=== PATIENT | male | born 1940 | race Caucasian/White ===

== ENCOUNTER → 2017-06-12 | Day surgery (SDC) | payer MEDICARE ==
[2017-06-12 13:29] LABS: INR 1.1 (<1.2); Partial Thromboplastin Time 24.1 sec (22.0-30.0); Prothrombin Time 11.3 sec (9.0-12.0)
[2017-06-12 13:46] VITALS: RESP 16; BMI 29.9
--- NOTE | 2017-06-12 15:21 | USB ---
EXAMINATION TYPE: US biopsy breast VAD LT, US biopsy breast add'l VAD LT, US biopsy breast add'l VAD RT DATE OF EXAM: 06/12/2017 CLINICAL HISTORY: R92.8 Abnormal Mammogram. Abnormal ultrasound TECHNIQUE: Ultrasound guided core biopsy of left breast 2 sites and right breast one site. COMPARISON: Prior bilateral breast ultrasound and mammogram April 23, 2017 FINDINGS: The procedure of ultrasound guided core biopsy was explained to the patient. Benefits, alternatives, and risks were discussed. An informed consent was then obtained. The patient was placed in supine positioning for imaging and for the procedure. The overlying skin was prepped and draped in usual sterile fashion. Lidocaine was used as anesthetic. Lidocaine with epinephrine is used as anesthetic into deeper tissue bilaterally. A hugo was made with surgical scalpel. Under ultrasound guidance, a 12-gauge vacuum assisted biopsy gun device was used to obtain 2 core samples of palpable abnormality left breast and tissue subareolar region left breast. Under ultrasound guidance, a 12-gauge vacuum assisted biopsy gun device was used to obtain 3 core samples of tissue subareolar region right breast. Biopsy clip was not deployed as areas of concern are well visualized and is male patient. The patient tolerated the procedure well without any immediate complication. The patient was kept in the radiology department for short stay after the procedure and then discharged home in stable condition. IMPRESSION: Successful, uncomplicated ultrasound guided core biopsy of 3 areas of concern in the bilateral breasts as requested by surgeon, full pathology results to follow. Low index of suspicion. Subareolar regions favor gynecomastia. Palpable abnormality left breast favors benign lipoma. Pathology Results: Benign A. BREAST, LEFT THREE O'CLOCK, CORE BIOPSY: BENIGN FIBROADIPOSE TISSUE WITH FEATURES SUGGESTIVE OF A LIPOMA. BREAST TISSUE NOT IDENTIFIED. B. BREAST, LEFT POSTERIOR NIPPLE, CORE BIOPSY: GYNECOMASTIA. C. BREAST, RIGHT POSTERIOR NIPPLE, CORE BIOPSY: GYNECOMASTIA. Recommendation Surgical consult of both breasts. Excision can be considered of the patient's left breast lipoma and of the bilateral gynecomastia if symptomatic. MTDD
[2017-06-12 15:58] VITALS: BP 138/77; PULSE 56; TEMP 97.9
== END ==
LOC: RADUSWWP 12:42
PROVIDERS: ATTEND Surgery
DX: N62 Hypertrophy of breast (principal); R92.8 Other abnormal and inconclusive findings on diagnostic imaging of breast; N64.89 Other specified disorders of breast; Z88.8 Allergy status to other drugs, medicaments and biological substances
CPT/HCPCS: 88305; 85610; 85730; 19083; 19084 ×2; J2001

== ENCOUNTER → 2018-03-28 | Outpatient (CLI) | payer MEDICARE ==
--- NOTE | 2018-03-28 12:41 | US ---
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 CKD EXAM MEASUREMENTS: Right Kidney: 10.7 x 5.4 x 5.5 cm Left Kidney: 10.3 x 5.7 x 4.0 cm Right Kidney: Exophytic cyst mid/medial= 1.1 x 1.0 x 1.2 cm Left Kidney: Cyst upper pole= 2.0 x 1.5 x 2.4 cm, cyst medial= 3.5 x 2.0 x 3.3 cm Bladder: wnl Bilateral Jets seen: Yes There is no evidence for hydronephrosis at this point in time. No nephrolithiasis is seen. No solid masses are identified. The urinary bladder is anechoic. Bilateral ureteral jets are seen. IMPRESSION: Simple renal cysts as noted.
== END | disposition home or self-care (01) ==
LOC: RADUSWWP 12:16
PROVIDERS: ATTEND Internal Medicine
DX: N18.3 Chronic kidney disease, stage 3 (moderate) (principal); N28.1 Cyst of kidney, acquired
CPT/HCPCS: 76770

== ENCOUNTER → 2022-03-28 | Outpatient (CLI) | payer MEDICARE ==
--- NOTE | 2022-03-28 13:51 | MM ---
Reason for Exam: Clinical finding. Last mammogram was performed 4 year(s) and 11 month(s) ago. Indicated Problems: Lump or thickening of the right side for 2 Month(s). Patient History: 06/12/2017, Benign Core Biopsy on the left side. 06/12/2017, Benign Core Biopsy on the left side. 06/12/2017, Benign Core Biopsy on the right side. Prior Study Comparison: 04/23/2017 Bilateral Diagnostic Mammogram, [facility]. Tissue Density: The breast tissue is heterogeneously dense. This may lower the sensitivity of mammography. Findings: Analyzed By CAD. Bilateral flame-shaped gynecomastia. No suspicious masses or microcalcifications. Focal abnormality corresponding to patient's palpable marker of the right breast. Overall Assessment: Incomplete: need additional imaging evaluation, BI-RAD 0 Management: Diagnostic Breast Ultrasound of the right breast. A clinical breast exam by your physician is recommended on an annual basis and results should be correlated with mammographic findings. This exam should not preclude additional follow-up of suspicious palpable abnormalities. Results were given to the patient verbally at the time of exam. Electronically signed and approved by: Isaias Ellison D.O.
--- NOTE | 2022-03-28 13:51 | USB ---
Reason for Exam: Clinical finding. Patient History: 06/12/2017, Benign Core Biopsy on the left side. 06/12/2017, Benign Core Biopsy on the left side. 06/12/2017, Benign Core Biopsy on the right side. Technique: Method: Targeted. Prior Study Comparison: 04/23/2017 Bilateral Diagnostic Mammogram, [facility]. Findings: The retroareolar of both breasts was scanned. Bilateral subareolar hypoechoic irregular densities consistent with gynecomastia. Overall Assessment: Benign, BI-RAD 2 Electronically signed and approved by: Isaias Ellison D.O.
== END | disposition home or self-care (01) ==
LOC: RADMAMWWP 12:48
PROVIDERS: ATTEND Internal Medicine
DX: N63.10 Unspecified lump in the right breast, unspecified quadrant (principal)
CPT/HCPCS: 77066